=== PATIENT | male | born 1950 | race Caucasian/White ===

== ENCOUNTER 2018-08-07 07:21 | Day surgery (SDC) | payer BC ==
[2018-08-07] MEDS ORDERED: BUPIVACAINE/EPI 0.5% 10 ML SOL INFIL ONE (07:29)
[2018-08-07] MEDS ORDERED: FENTANYL 100MCG/2ML SOL ONE (07:52)
[2018-08-07] MEDS ORDERED: MIDAZOLAM 2 MG/2 ML SOL ONE (07:52)
[2018-08-07] MEDS ORDERED: PROPOFOL 500 MG/50 ML EMU IV ONE (07:52)
[2018-08-07] MEDS ORDERED: METOPROLOL TARTRATE 5 MG/5 ML SOL IV ONE (08:24)
[2018-08-07 09:28] VITALS: BP 124/78; PULSE 86; RESP 20; TEMP 97.5; O2SAT 95
== END 2018-08-07 09:38 | disposition home or self-care (01) | DRG 599 ==
LOC: SURG 07:21
PROVIDERS: ATTEND Surgery
DX: C79.2 Secondary malignant neoplasm of skin (principal); E11.9 Type 2 diabetes mellitus without complications
CPT/HCPCS: J2250; J3010; A6402; J2704; J3490